=== PATIENT | female | born 1985 | race Caucasian/White ===

== ENCOUNTER 2017-06-14 15:25 | Emergency (ER) | payer MEDICAID ==
[2017-06-14 15:25] VITALS: BMI 48.2
[2017-06-14 15:31] VITALS: BP 145/80; PULSE 74; RESP 18; TEMP 97.8; O2SAT 99
--- NOTE | 2017-06-14 16:26 | ED PDOC ---
HPI: General Adult Time Seen by Provider: 06/14/17 15:41 Chief Complaint (Nursing): Hip Pain Chief Complaint (Provider): Hip Pain History Per: Patient History/Exam Limitations: no limitations Onset/Duration Of Symptoms: Days Current Symptoms Are (Timing): Still Present Additional Complaint(s): Leola Rasmussen is a 32 year old female with no past medical history, who is presenting to the ER with complaints of chronic hip pain, worsening two days ago. Patient states that she has had hip pain "all her life " but the pain has been the worst in the last two days. She reports that she has taken no medications for pain relief today and denies any recent trauma or injury. Patient denies any numbness, weakness, or tingling. She offers no other medical complaints at this time. PMD: none provided Past Medical History Reviewed: Historical Data, Nursing Documentation, Vital Signs Vital Signs: Last Vital Signs Temp 97.8 F 06/14/17 15:28 Pulse 74 06/14/17 15:28 Resp 18 06/14/17 15:28 BP 145/80 06/14/17 15:28 Pulse Ox 99 06/14/17 16:29 - Medical History PMH: No Chronic Diseases - Surgical History Surgical History: No Surg Hx - Family History Family History: States: Unknown Family Hx - Social History Current smoker - smoking cessation education provided: Yes Alcohol: Occasional Drugs: Denies - Home Medications Home Medications: Ambulatory Orders Medication Instructions Recorded Ibuprofen [Motrin Tab] 800 mg PO Q6H PRN #20 tab 06/14/17 oxyCODONE/Acetaminophen [Percocet 1 ea PO Q6H PRN #10 tab 06/14/17 5/325 mg Tab] - Allergies Allergies/Adverse Reactions: Allergies Allergy/AdvReac Type Severity Reaction Status Date / Time No Known Allergies Allergy Verified 05/10/14 07:55 Review of Systems ROS Statement: Except As Marked, All Systems Reviewed And Found Negative Constitutional: Positive for: Other (no trauma or injury) Musculoskeletal: Positive for: Other (hip pain) Neurological: Negative for: Weakness, Numbness, Other (tingling) Physical Exam - Reviewed Nursing Documentation Reviewed: Yes Vital Signs Reviewed: Yes - Physical Exam Appears: Positive for: Non-toxic, No Acute Distress Head Exam: Positive for: ATRAUMATIC Skin: Positive for: Normal Color Eye Exam: Positive for: Normal appearance ENT: Positive for: Normal ENT Inspection Neck: Positive for: Normal Respiratory: Negative for: Accessory Muscle Use, Respiratory Distress Extremity: Positive for: Other (unable to extend from hip, can't stand up straight). Negative for: Normal ROM, Pedal Edema, Deformity, Swelling (No lesions or edema of the hip ) Neurologic/Psych: Positive for: Alert, Oriented. Negative for: Motor/Sensory Deficits - ECG O2 Sat by Pulse Oximetry: 99 (RA) Pulse Ox Interpretation: Normal Medical Decision Making Medical Decision Making: Time: 16:17 Plan: --Motrin Tab 600 mg Po --Percocet 1 tab PO --X-Ray Right Hip x-ray without acute fracture or dislocation. Pt reports feeling better after medication. Scribe Attestation: Documented by Karen Helm, acting as a scribe for Edna Grande PA-C. Provider Scribe Attestation: All medical record entries made by the Scribe were at my direction and personally dictated by me. I have reviewed the chart and agree that the record accurately reflects my personal performance of the history, physical exam, medical decision making, and the department course for this patient. I have also personally directed, reviewed, and agree with the discharge instructions and disposition. Disposition - Clinical Impression Clinical Impression: Right hip pain - Patient ED Disposition Is Patient to be Admitted: No Counseled Patient/Family Regarding: Diagnosis, Need For Followup, Rx Given - Disposition Disposition: Routine/Home Disposition Time: 17:13 Condition: GOOD Prescriptions: Ibuprofen [Motrin Tab] 800 mg PO Q6H PRN #20 tab PRN Reason: Pain oxyCODONE/Acetaminophen [Percocet 5/325 mg Tab] 1 ea PO Q6H PRN #10 tab PRN Reason: Pain, Severe (8-10) Instructions: Hip Pain Forms: [employer] (Indonesian)
[2017-06-14] MEDS ORDERED: Oxycodone/Acetaminophen 5/325 mg Tab ONE (16:36)
[2017-06-14] MEDS: Oxycodone/Acetaminophen 5/325 mg Tab PO STA (16:36)
--- NOTE | 2017-06-14 17:26 | RAD ---
PROCEDURE: RIGHT HIP WITH PELVIS RADIOGRAPHS. HISTORY: right hip pain, chronic, worse the last few days COMPARISON: None available. TECHNIQUE: AP and frog-leg lateral views of the right hip dense minimal osteophyte over the pelvis. FINDINGS: No acute fracture dislocation seen involving the right hip joint. Pelvic ring also appears intact without acute fracture. However, there is advanced sclerosis and osteophyte development at the bilateral hip joints of the compatible with advanced osteoarthritis, particularly for a patient of only 32 years age. Limited deformities of the bilateral iliac bones are suggested appears somewhat smaller in size than usual at the upper extent. The femoral necks may be bilaterally foreshortened mildly as well. Sacroiliac joints appear unremarkable bilaterally. Pubic symphysis is intact. Soft tissue calcifications at the right pelvis are identified suggestive of probable phleboliths though uroliths are not completely excluded. IMPRESSION: Advanced osteoarthritis bilateral hip joints. No acute fracture or dislocation appreciated the right hip joint or the pelvic ring.
== END 2017-06-14 17:27 | disposition home or self-care (01) ==
LOC: H.ER 15:25
DX: M25.551 Pain in right hip (principal); G89.29 Other chronic pain; M16.0 Bilateral primary osteoarthritis of hip

== ENCOUNTER 2018-05-21 12:05 | Emergency (ER) | payer MEDICAID ==
[2018-05-21 12:10] VITALS: BMI 38.0
[2018-05-21 13:36] LABS: BASO % 0.7 % (0.0-2.0); EOS % 0.3 % (0.0-4.0); HEMOGLOBIN 12.5 g/dL (12.0-16.0); LYMPH # 1.1 K/uL (1.0-4.3); LYMPH % 18.6 % (20.0-40.0); MEAN CELL VOLUME 86.5 fl (81.0-99.0); MEAN CORPUSCULAR HEMOGLOBIN 28.4 pg (27.0-31.0); MEAN CORPUSCULAR HGB CONC 32.9 g/dL (33.0-37.0); MEAN PLATELET VOLUME 9.5 fl (7.2-11.7); MONO # 0.3 K/uL (0.0-0.8); MONO % 5.6 % (0.0-10.0); NEUT # 4.5 K/uL (1.8-7.0); NEUT % 74.8 % (50.0-75.0); RBC 4.39 Mil/uL (3.80-5.20); RED CELL DISTRIBUTION WIDTH 14.7 % (11.5-14.5)
[2018-05-21 13:40] LABS: SQUAMOUS EPITHIAL < 1 /hpf (0-5); URINE BILIRUBIN NEGATIVE (NEGATIVE); URINE BLOOD NEGATIVE (NEGATIVE); URINE CLARITY SLIGHTY-CLOUDY (Clear); URINE COLOR YELLOW (YELLOW); URINE GLUCOSE (UA) NEG (NEGATIVE); URINE LEUKOCYTE ESTERASE NEG Leu/uL (Negative); URINE PROTEIN NEGATIVE (NEGATIVE); URINE UROBILINOGEN 0.2-1.0 mg/dL (0.2-1.0)
--- NOTE | 2018-05-21 13:42 | ED PDOC ---
HPI: Abdomen Time Seen by Provider: 05/21/18 12:27 Chief Complaint (Nursing): Abdominal Pain Chief Complaint (Provider): Abdominal Pain History Per: Patient History/Exam Limitations: no limitations Onset/Duration Of Symptoms: Worse Since (today), Other (x1 month) Additional Complaint(s): Patient is a 33 y/o female with no significant PMHx who presents to the ED for evaluation of left-sided abdominal pain for the past month. Patient reports the pain has been on and off but experienced a fourth occurrence today, which she indicated was the worst yet. Patient claims the pain is radiating to her back and groin. Patient denies pain on urination. PCP: None Provided Past Medical History Reviewed: Historical Data, Nursing Documentation, Vital Signs Vital Signs: Last Vital Signs Temp 97.7 F 05/21/18 12:08 Pulse 68 05/21/18 12:08 Resp 19 05/21/18 12:08 BP 138/71 05/21/18 12:08 Pulse Ox 100 05/21/18 12:08 - Medical History PMH: No Chronic Diseases - Surgical History Surgical History: - Family History Family History: States: Unknown Family Hx - Immunization History Hx Tetanus Toxoid Vaccination: No Hx Influenza Vaccination: No Hx Pneumococcal Vaccination: No - Home Medications Home Medications: Ambulatory Orders Medication Instructions Recorded Ibuprofen [Motrin Tab] 800 mg PO Q6H PRN #20 tab 06/14/17 oxyCODONE/Acetaminophen [Percocet 1 ea PO Q6H PRN #10 tab 06/14/17 5/325 mg Tab] - Allergies Allergies/Adverse Reactions: Allergies Allergy/AdvReac Type Severity Reaction Status Date / Time No Known Allergies Allergy Verified 05/10/14 07:55 Review of Systems ROS Statement: Except As Marked, All Systems Reviewed And Found Negative Gastrointestinal: Positive for: Abdominal Pain (left-sided) Genitourinary Female: Negative for: Dysuria Musculoskeletal: Positive for: Back Pain, Other (Groin Pain) Physical Exam - Reviewed Nursing Documentation Reviewed: Yes Vital Signs Reviewed: Yes - Physical Exam Appears: Positive for: No Acute Distress (tearful) Head Exam: Positive for: ATRAUMATIC, NORMAL INSPECTION, NORMOCEPHALIC Skin: Positive for: Normal Color, Warm, DRY Eye Exam: Positive for: EOMI, Normal appearance, PERRL Neck: Positive for: Normal, Painless ROM, Supple Cardiovascular/Chest: Positive for: Regular Rate, Rhythm. Negative for: Murmur Respiratory: Positive for: Normal Breath Sounds. Negative for: Respiratory Distress Gastrointestinal/Abdominal: Positive for: Soft, Tenderness (left abdominal) Back: Positive for: Normal Inspection. Negative for: L CVA Tenderness, R CVA Tenderness, Vertebral Tenderness, Other (flank tenderness) Extremity: Positive for: Normal ROM. Negative for: Pedal Edema, Deformity Neurological/Psych: Positive for: Alert, Oriented (x3) - Laboratory Results Result Diagrams: 05/21/18 13:20 05/21/18 13:20 - ECG O2 Sat by Pulse Oximetry: 100 (RA) Pulse Ox Interpretation: Normal Medical Decision Making Medical Decision Making: Time: 1251 Impression: Left-Sided Pain, Possible Stones Plan: CT Abd & Pelvis IV Contrast CMP CBC Morphine 2 mg IVP UA Time: 1643 FINDINGS: LOWER THORAX: Unremarkable. LIVER: Unremarkable. No gross lesion or ductal dilatation. GALLBLADDER AND BILE DUCTS: Mildly distended otherwise unremarkable appearing gallbladder. PANCREAS: Unremarkable. No gross lesion or ductal dilatation. SPLEEN: Unremarkable. ADRENALS: Unremarkable. No mass. KIDNEYS AND URETERS: Unremarkable. No hydronephrosis. No solid mass. VASCULATURE: Unremarkable. No aortic aneurysm. No aortic atherosclerotic calcification or mural plaque present. BOWEL: Unremarkable. No obstruction. No gross mural thickening. Evaluation of the gastrointestinal tract is limited due to the lack of oral contrast administration. APPENDIX: None identified. No CT pattern to suggest appendicitis. Contracted small-bowel loops are seen in the medial right lower quadrant midline pelvis. Clinically correlate further. PERITONEUM: Unremarkable. No free fluid. No free air. LYMPH NODES: Unremarkable. No enlarged lymph nodes. BLADDER: Unremarkable. REPRODUCTIVE: Trace fluid noted in the endometrial cavity. Bilateral necks compartments appear unremarkable. BONES: No acute fracture. OTHER FINDINGS: Right buttocks injection granuloma noted. IMPRESSION: No definite acute abdominal or pelvic findings. Evaluation of the gastrointestinal tract is limited due to the lack of oral contrast administration. Appendix not identified. No CT evidence to suggest definite appendicitis. [address] shows no abnormalities. Pt to be discharged home with referral to GI. Tylenol or Motrin for pain. Scribe Attestation: Documented by Johny Lopez, acting as a scribe Ariana Reyes MD. Provider Scribe Attestation: All medical record entries made by the Scribe were at my direction and personally dictated by me. I have reviewed the chart and agree that the record accurately reflects my personal performance of the history, physical exam, medical decision making, and the department course for this patient. I have also personally directed, reviewed, and agree with the discharge instructions and disposition. Disposition - Clinical Impression Clinical Impression: Abdominal pain - Patient ED Disposition Is Patient to be Admitted: No - Disposition Referrals: Alek Farmer MD, PhD [Staff Provider] - Disposition: Routine/Home Disposition Time: 17:00 Condition: IMPROVED Forms: [employer] (Tajik)
[2018-05-21 14:02] LABS: ALB/GLOB RATIO 1.4 (1.0-2.1); ALBUMIN 4.5 g/dL (3.5-5.0); ALT/SGPT 28 U/L (9-52); AST/SGOT 24 U/L (14-36); BLOOD UREA NITROGEN 15 mg/dl (7-17); CALCIUM 9.8 mg/dL (8.4-10.2); GFR NON-AFRICAN AMERICAN > 60
[2018-05-21] MEDS ORDERED: Sodium Chloride 0.9% 50 ML IV ONE (14:34)
[2018-05-21] MEDS ORDERED: Iohexol 300 100 ML IJ ONE (14:34)
--- NOTE | 2018-05-21 16:47 | CT ---
Date of service: 05/21/2018 PROCEDURE: CT Abdomen and Pelvis with contrast HISTORY: right sided abdominal pain COMPARISON: None. TECHNIQUE: Following the intravenous administration of iodinated contrast material, a CT examination of the abdomen and pelvis was performed from the domes of the diaphragms to the symphysis pubis with reformatted datasets provided in axial, sagittal and coronal planes. Oral contrast was not administered as per referring physician request. Contrast dose: Omnipaque 300, 95 cc Radiation dose: Total exam DLP = 841.14 mGy-cm. This CT exam was performed using one or more of the following dose reduction techniques: Automated exposure control, adjustment of the mA and/or kV according to patient size, and/or use of iterative reconstruction technique. FINDINGS: LOWER THORAX: Unremarkable. LIVER: Unremarkable. No gross lesion or ductal dilatation. GALLBLADDER AND BILE DUCTS: Mildly distended otherwise unremarkable appearing gallbladder. PANCREAS: Unremarkable. No gross lesion or ductal dilatation. SPLEEN: Unremarkable. ADRENALS: Unremarkable. No mass. KIDNEYS AND URETERS: Unremarkable. No hydronephrosis. No solid mass. VASCULATURE: Unremarkable. No aortic aneurysm. No aortic atherosclerotic calcification or mural plaque present. BOWEL: Unremarkable. No obstruction. No gross mural thickening. Evaluation of the gastrointestinal tract is limited due to the lack of oral contrast administration. APPENDIX: None identified. No CT pattern to suggest appendicitis. Contracted small-bowel loops are seen in the medial right lower quadrant midline pelvis. Clinically correlate further. PERITONEUM: Unremarkable. No free fluid. No free air. LYMPH NODES: Unremarkable. No enlarged lymph nodes. BLADDER: Unremarkable. REPRODUCTIVE: Trace fluid noted in the endometrial cavity. Bilateral necks compartments appear unremarkable. BONES: No acute fracture. OTHER FINDINGS: Right buttocks injection granuloma noted. IMPRESSION: No definite acute abdominal or pelvic findings. Evaluation of the gastrointestinal tract is limited due to the lack of oral contrast administration. Appendix not identified. No CT evidence to suggest definite appendicitis.
[2018-05-21 17:22] VITALS: BP 130/70; PULSE 72; RESP 15; TEMP 98.3; O2SAT 99
== END 2018-05-21 17:15 | disposition home or self-care (01) ==
LOC: H.ER 12:05
DX: R10.9 Unspecified abdominal pain (principal)
CPT/HCPCS: 74177; 80053; 81003; 85025; 96374; 96376; 99283; J2270; Q9967